=== PATIENT | female | born 1995 | race Caucasian/White ===

== ENCOUNTER 2016-07-19 15:45 | Emergency (ER) | payer BC ==
[2016-07-19 16:16] VITALS: BP 109/55
--- NOTE | 2016-07-19 16:28 | UC ---
Abdominal Pain Female HPI - HPI Summary HPI Summary: The patient comes in today for: 1. Abdominal pain: Onset: 4-5 days ago. Palliative/provocative: Heating pad makes it worse. Quality: Cramping. Region: Left side is worse, but she has it across the whole front, lower abdomen. Severity: Initially, the pain was 2/10, but now it is 6/10 Time: Constant. Associated symptoms: : A1 LMP: June 04. She is breast feeding. She took a home test (+) one week ago. Blood test was positive yesterday. Fevers: None. Vaginal discharge: Pinkish discharge. 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 Last Menstrual Period: 06/05/16 Allergies/Adverse Reactions: Allergies Allergy/AdvReac Type Severity Reaction Status Date / Time Lactose Intolerance (GI) AdvReac GI Upset Verified 07/19/16 16:16 Home Medications: Home Medications NK [No Home Medications Reported] 07/19/16 [History Confirmed 07/19/16] PMH/Surg Hx/FS Hx/Imm Hx Previously Healthy: Yes - No DM, thyroid, HTN, Asthma, GERD, Other History Of: Negative For: HIV, Hepatitis B, Hepatitis C, Anticoagulant Therapy - Surgical History Surgical History: Yes Surgery Procedure, Year, and Place: Appendectomy 2007, D & C - Family History Known Family History: Positive: Cardiac Disease Negative: Diabetes - Social History Occupation: Employed Full-time Alcohol Use: None Substance Use Type: None Substance Use Comment - Amount & Last Used: occasional use Smoking Status (MU): Current Some Day Smoker Type: Cigarettes Amount Used/How Often: 1/2 cig daily Length of Time of Smoking/Using Tobacco: 2 yrs Have You Smoked in the Last Year: Yes When Did the Patient Quit Smoking/Using Tobacco: a couple months ago Household Exposure Type: Cigarettes - Immunization History Most Recent Influenza Vaccination: FALL 2013 Vaccination Up to Date: Yes Review of Systems Constitutional: Negative Skin: Negative Eyes: Negative ENT: Negative Respiratory: Negative Cardiovascular: Negative Gastrointestinal: Abdominal Pain Genitourinary: Negative Motor: Negative Neurovascular: Negative All Other Systems Reviewed And Are Negative: Yes Physical Exam Triage Information Reviewed: Yes Appearance: Well-Appearing, No Pain Distress, Well-Nourished Vital Signs: Initial Vital Signs Temp 98.7 F 07/19/16 16:10 Pulse 89 07/19/16 16:10 Resp 17 07/19/16 16:10 BP 109/55 07/19/16 16:10 Pulse Ox 100 07/19/16 16:10 Eyes: Positive: Conjunctiva Clear. Negative: Discharge ENT: Positive: Hearing grossly normal. Negative: Pharyngeal erythema, Nasal congestion, Nasal drainage, TM bulging, TM dull, TM red, Tonsillar swelling, Tonsillar exudate Dental: Negative: Gross Decay/Caries @, Dental Fracture @ Neck: Positive: Supple, Nontender, No Lymphadenopathy. Negative: Nuchal Rigidity Respiratory: Positive: Chest non-tender, Lungs clear, No respiratory distress, No accessory muscle use. Negative: Crackles, Wheezing Cardiovascular: Positive: RRR, No Murmur Abdomen Description: Positive: No Organomegaly, Soft, Distended, Guarding. Negative: Nontender - She has tenderness that is worse in the LLQ. There is rebound and percussion tenderness. Bowel Sounds: Positive: Present Musculoskeletal: Positive: Strength Intact, ROM Intact, No Edema, Other: - Unable to feel fundus. Neurological: Positive: Alert, Muscle Tone Normal Psychological Exam: Normal Psychological: Positive: Normal Response To Family, Age Appropriate Behavior, Consolable Skin: Negative: rashes, breakdown Abd Pain Female Course/Dx - Course Course Of Treatment: Patient was told that I recommneded that she go to [facility] for further testing. - Differential Dx/Diagnosis Provider Diagnoses: abdominal pain. - Physician Notification/Consults Discussed Care of Patient With: Dr. Turner Time Discussed With Above Provider: 16:45 Discharge - Discharge Plan Condition: Stable Disposition: HOME Forms: *Work Release Referrals: Non Staff,Doctor [Medical Doctor] - Additional Instructions: Please go directly to the [facility] ER.
== END 2016-07-19 16:48 | disposition left against medical advice (07) ==
LOC: UCCORT 15:45
DX: O26.899 Other specified pregnancy related conditions, unspecified trimester (principal); R10.30 Lower abdominal pain, unspecified; Z3A.00 Weeks of gestation of pregnancy not specified; Z72.0 Tobacco use
CPT/HCPCS: 99212; G0463

== ENCOUNTER 2016-11-03 08:37 | Emergency (ER) | payer BC, MEDICAID ==
[2016-11-03 08:51] VITALS: BP 97/50
--- NOTE | 2016-11-03 09:00 | UC ---
Throat Pain/Nasal Neal HPI - HPI Summary HPI Summary: Pt c/o sore throat, cough and stuffy nose getting worse last 3 days. Pt states it started out as "tickle in my throat this past Sunday night", had fever tmax 101.5 on Sunday- no fever since. States she "threw up x7 times last night because of my cough". Took tylenol 650mg today 0230. Pt currently 20 weeks . [ End ] - History of Current Complaint Chief Complaint: UCGeneralIllness Stated Complaint: STUFFY/RUNNY NOSE COUGH HEADACHE Time Seen by Provider: 11/03/16 08:51 Hx Obtained From: Patient Hx Last Menstrual Period: 06/05/16 ?: Yes Onset/Duration: Gradual Onset - Allergies/Home Medications Allergies/Adverse Reactions: Allergies Allergy/AdvReac Type Severity Reaction Status Date / Time Lactose Intolerance (GI) AdvReac GI Upset Verified 11/03/16 08:43 Home Medications: Home Medications Vitamin [Calna] 1 tab DAILY 11/03/16 [History Confirmed 11/03/16] PMH/Surg Hx/FS Hx/Imm Hx Previously Healthy: Yes Other History Of: Negative For: HIV, Hepatitis B, Hepatitis C, Anticoagulant Therapy - Surgical History Surgical History: Yes Surgery Procedure, Year, and Place: Appendectomy 2007, D & C - Family History Known Family History: Positive: Cardiac Disease Negative: Diabetes - Social History Lives: With Family Alcohol Use: None Substance Use Type: None Substance Use Comment - Amount & Last Used: occasional use Smoking Status (MU): Former Smoker Type: Cigarettes Amount Used/How Often: 1/2 cig daily Length of Time of Smoking/Using Tobacco: 2 yrs Have You Smoked in the Last Year: Yes When Did the Patient Quit Smoking/Using Tobacco: a couple months ago Household Exposure Type: Cigarettes - Immunization History Most Recent Influenza Vaccination: NOT YET 2017 Vaccination Up to Date: Yes Review of Systems Constitutional: Fever, Chills, Fatigue ENT: Sore Throat Gastrointestinal: Vomiting, Nausea Neurological: Headache All Other Systems Reviewed And Are Negative: Yes Physical Exam Triage Information Reviewed: Yes Appearance: Well-Appearing, No Pain Distress, Well-Nourished Vital Signs: Initial Vital Signs Temp 98.6 F 11/03/16 08:44 Pulse 99 11/03/16 08:44 Resp 18 11/03/16 08:44 BP 97/50 11/03/16 08:44 Pulse Ox 100 11/03/16 08:44 Vital Signs Reviewed: Yes Eye Exam: Normal ENT Exam: Normal Dental Exam: Normal Neck exam: Normal Neck: Positive: 1 Respiratory Exam: Normal Cardiovascular Exam: Normal Musculoskeletal Exam: Normal Neurological Exam: Normal Psychological Exam: Normal Skin Exam: Normal Throat Pain/Nasal Course/Dx - Course Course Of Treatment: strep neg. nausea from the illness. push fluids , if Sx worsen then go to the ED -- she is aware if Sx persist she will need IV fluids. she is aware and agrees but not there at this time. rest up and OOW for 2 days . - Differential Dx/Diagnosis Differential Diagnosis/HQI/PQRI: Influenza, Peritonsillar Abscess, Pharyngitis, Sinusitis, Tonsillitis, URI Provider Diagnoses: VIral Syndrome during Discharge - Discharge Plan Condition: Good Disposition: HOME Patient Education Materials: Acute Nausea and Vomiting (ED), Viral Syndrome (ED ) Forms: *Work Release Referrals: Sandy Catalan MD [Primary Care Provider] - 3 Days Additional Instructions: If your symptoms worsen then go to the Emergency room for further evaluation . Please for the cough consider tea with honey, consider benadryl for the congestion for a day or two, continue with humidifier, start the netti pot, follow up with PCP for any concerns
== END 2016-11-03 09:39 | disposition home or self-care (01) ==
LOC: UCCORT 08:37
DX: O98.512 Other viral diseases complicating pregnancy, second trimester (principal); Z3A.20 20 weeks gestation of pregnancy
CPT/HCPCS: 87502; 87651; 99211; G0463

== ENCOUNTER 2017-12-04 11:22 | Emergency (ER) | payer BC, MEDICAID ==
[2017-12-04 11:55] VITALS: BP 111/63
--- NOTE | 2017-12-04 12:19 | UC ---
Throat Pain/Nasal Neal HPI - HPI Summary HPI Summary: sore throat x 2 days + fatigue, very bad headaches, cough, congestion pressure in her face and behind her eyes, seeing dark spots, no dizziness but feels very tired and cannot focus no fever, + chills - History of Current Complaint Chief Complaint: UCGeneralIllness Stated Complaint: HEADACHE,SORE THROAT,BODY ACHES Time Seen by Provider: 12/04/17 11:52 Hx Obtained From: Patient Hx Last Menstrual Period: IUD ?: No Onset/Duration: Gradual Onset, Lasting Days - 2, Still Present Severity: Moderate Pain Intensity: 4 Cough: Nonproductive Associated Signs & Symptoms: Positive: Sinus Discomfort. Negative: Hoarseness, Nasal Discharge, Fever, Vomiting, Rash - Allergies/Home Medications Allergies/Adverse Reactions: Allergies Allergy/AdvReac Type Severity Reaction Status Date / Time lactose AdvReac Intermediate GI Upset Verified 12/04/17 11:56 Home Medications: Home Medications NK [No Home Medications Reported] 12/04/17 [History Confirmed 12/04/17] PMH/Surg Hx/FS Hx/Imm Hx Previously Healthy: Yes Other History Of: Negative For: HIV, Hepatitis B, Hepatitis C, Anticoagulant Therapy - Surgical History Surgical History: Yes Surgery Procedure, Year, and Place: Appendectomy 2007, D & C - Family History Known Family History: Positive: Cardiac Disease Negative: Diabetes - Social History Alcohol Use: None Substance Use Type: None Substance Use Comment - Amount & Last Used: occasional use Smoking Status (MU): Former Smoker Type: Cigarettes Amount Used/How Often: 1/2 cig daily Length of Time of Smoking/Using Tobacco: 2 yrs Have You Smoked in the Last Year: Yes When Did the Patient Quit Smoking/Using Tobacco: a couple months ago Household Exposure Type: Cigarettes - Immunization History Most Recent Influenza Vaccination: NOT YET 2017 Vaccination Up to Date: Yes Review of Systems Constitutional: Fever, Chills, Fatigue Skin: Negative Eyes: Photophobia ENT: Sore Throat Respiratory: Cough Cardiovascular: Negative Is Patient Immunocompromised?: No All Other Systems Reviewed And Are Negative: Yes Physical Exam Triage Information Reviewed: Yes Appearance: Well-Nourished, Pain Distress Vital Signs: Initial Vital Signs Temp 97.9 F 12/04/17 11:44 Pulse 87 12/04/17 11:44 Resp 18 10/16/18 11:44 BP 111/63 12/04/17 11:44 Pulse Ox 99 12/04/17 11:44 Vital Signs Reviewed: Yes Eyes: Positive: Conjunctiva Clear ENT: Positive: Normal ENT inspection, Hearing grossly normal, Pharyngeal erythema, Tonsillar swelling, Tonsillar exudate. Negative: Nasal congestion, Nasal drainage Neck exam: Normal Neck: Positive: Supple, Nontender, No Lymphadenopathy Respiratory Exam: Normal Respiratory: Positive: Chest non-tender, Lungs clear, Normal breath sounds Cardiovascular: Positive: RRR, No Murmur, Pulses Normal Abdomen Description: Positive: Nontender, Soft. Negative: CVA Tenderness (R), CVA Tenderness (L), Distended, Guarding Bowel Sounds: Positive: Present Musculoskeletal Exam: Normal Neurological Exam: Normal Skin Exam: Normal Throat Pain/Nasal Course/Dx - Differential Dx/Diagnosis Provider Diagnoses: viral illness Discharge - Sign-Out/Discharge Documenting (check all that apply): Patient Departure All imaging exams completed and their final reports reviewed: No Studies - Discharge Plan Condition: Stable Disposition: HOME Patient Education Materials: Viral Syndrome (ED) Referrals: No Primary Care Phys,NOPCP [Primary Care Provider] - 5 Days - Billing Disposition and Condition Condition: STABLE Disposition: Home
== END 2017-12-04 12:28 | disposition home or self-care (01) ==
LOC: UCCORT 11:22
DX: B34.9 Viral infection, unspecified (principal); E73.9 Lactose intolerance, unspecified; Z87.891 Personal history of nicotine dependence
CPT/HCPCS: 87651; 99212; G0463

== ENCOUNTER 2018-07-10 10:53 | Emergency (ER) | payer BC, MEDICAID ==
[2018-07-10 11:33] VITALS: BP 122/75
--- NOTE | 2018-07-10 12:09 | UC ---
General HPI - HPI Summary HPI Summary: PT HAS HAD A BUMP ON HER SCALP FOR ABOUT 2 YEARS. RECENTLY, THE AREA HAS BECOME SENSITIVE. IT HAS A LEDGE ON IT. - History of Current Complaint Chief Complaint: HAVENkin Stated Complaint: SKIN CONCERN Time Seen by Provider: 07/10/18 12:02 Hx Obtained From: Patient Hx Last Menstrual Period: 07/10/18 Pain Intensity: 0 Associated Signs & Symptoms: Negative: Fever - Allergy/Home Medications Allergies/Adverse Reactions: Allergies Allergy/AdvReac Type Severity Reaction Status Date / Time lactose AdvReac Intermediate GI Upset Verified 07/10/18 11:34 PMH/Surg Hx/FS Hx/Imm Hx Previously Healthy: Yes Other History Of: Negative For: HIV, Hepatitis B, Hepatitis C, Anticoagulant Therapy - Surgical History Surgical History: Yes Surgery Procedure, Year, and Place: Appendectomy 2007, D & C - Family History Known Family History: Positive: Cardiac Disease Negative: Diabetes - Social History Lives: With Family Alcohol Use: None Substance Use Type: None Substance Use Comment - Amount & Last Used: occasional use Smoking Status (MU): Former Smoker Type: Cigarettes Amount Used/How Often: 1/2 cig daily Length of Time of Smoking/Using Tobacco: 2 yrs Have You Smoked in the Last Year: Yes When Did the Patient Quit Smoking/Using Tobacco: a couple months ago Household Exposure Type: Cigarettes - Immunization History Most Recent Influenza Vaccination: NOT YET 2017 Vaccination Up to Date: Yes Review of Systems All Other Systems Reviewed And Are Negative: No Constitutional: Negative: Fever Skin: Positive: Rash - SPOT ON SCALP Neurological: Negative: Headache Physical Exam Triage Information Reviewed: Yes Appearance: Well-Appearing Vital Signs: Initial Vital Signs Temp 98.7 F 07/10/18 11:27 Pulse 79 07/10/18 11:27 Resp 16 07/10/18 11:27 BP 122/75 07/10/18 11:27 Pulse Ox 99 07/10/18 11:27 Vital Signs Reviewed: Yes Eyes: Positive: Conjunctiva Clear Neck: Positive: Supple Respiratory: Positive: No respiratory distress Musculoskeletal: Positive: ROM Intact Skin Exam: Normal, Other - Back of scalp on R has a 7mm raised white lesion. No erythema, warmth or tenderness. Course/Dx - Differential Dx - Multi-Symptom Differential Diagnoses: Other - Nno concern for infection or abscess. will refer to dermatology - Diagnoses Provider Diagnosis: Skin lesion of scalp Discharge - Sign-Out/Discharge Documenting (check all that apply): Patient Departure All imaging exams completed and their final reports reviewed: No Studies - Discharge Plan Condition: Stable Disposition: HOME Patient Education Materials: Soft Tissue Mass (ED) Referrals: Alexandria Rivas [Medical Doctor] - As Soon As Possible Additional Instructions: YOU CAN REQUEST THE [facility] OFFICE - Billing Disposition and Condition Condition: STABLE Disposition: Home
== END 2018-07-10 12:15 | disposition home or self-care (01) ==
LOC: UCCORT 10:53
DX: L98.8 Other specified disorders of the skin and subcutaneous tissue (principal); Z87.891 Personal history of nicotine dependence; Z91.011 Allergy to milk products
CPT/HCPCS: 99211; G0463

== ENCOUNTER 2019-04-01 10:27 | Emergency (ER) | payer BC, MEDICAID ==
[2019-04-01 10:46] VITALS: BP 112/65
--- NOTE | 2019-04-01 10:59 | UC ---
Complaint Female HPI - HPI Summary HPI Summary: concern about has done few home test at home , had few negative and few positives c/o breast fullness, pt has an IUD and does not have regular menstrual periods no abdominal pain, no vaginal discharge or bleeding - History Of Current Complaint Chief Complaint: UCGU Stated Complaint: PERSONAL Time Seen by Provider: 04/01/19 10:45 Hx Obtained From: Patient Hx Last Menstrual Period: IUD placed May 2017 Onset/Duration: Gradual Onset, Lasting Days - 4, Still Present Timing: Constant Severity Initially: Mild Severity Currently: Mild Pain Intensity: 0 Character: Not Applicable Aggravating Factor(s): Nothing Alleviating Factor(s): Nothing Associated Signs And Symptoms: Negative: Fever, Back Pain, Vaginal Bleeding/ Discharge, Vaginal Discharge, Nausea, Vomiting(# Of Episodes =), Genital Swelling, Genital Blisters, Retained Foregin Body (Specify) - Allergies/Home Medications Allergies/Adverse Reactions: Allergies Allergy/AdvReac Type Severity Reaction Status Date / Time lactose AdvReac Intermediate GI Upset Verified 04/01/19 10:37 Home Medications: Home Medications Levonorgestrel (Iud) [Mirena IUD] 1 implant ONCE 04/01/19 [History Confirmed 01/08] PMH/Surg Hx/FS Hx/Imm Hx Cardiovascular History: Cardiac Disease - SVT Other History Of: Negative For: HIV, Hepatitis B, Hepatitis C, Anticoagulant Therapy - Surgical History Surgical History: Yes Surgery Procedure, Year, and Place: Appendectomy 2007, D & C - Family History Known Family History: Positive: Cardiac Disease Negative: Diabetes - Social History Alcohol Use: None Substance Use Type: None Substance Use Comment - Amount & Last Used: occasional use Smoking Status (MU): Light Every Day Tobacco Smoker Type: Cigarettes Amount Used/How Often: 2 cigs/day Length of Time of Smoking/Using Tobacco: 2 yrs Have You Smoked in the Last Year: Yes When Did the Patient Quit Smoking/Using Tobacco: a couple months ago Household Exposure Type: Cigarettes - Immunization History Most Recent Influenza Vaccination: NOT YET 2017 Vaccination Up to Date: Yes Review of Systems All Other Systems Reviewed And Are Negative: Yes Is Patient Immunocompromised?: No Physical Exam Triage Information Reviewed: Yes Appearance: Well-Appearing, No Pain Distress, Well-Nourished Vital Signs: Initial Vital Signs Temp 97.8 F 04/01/19 10:37 Pulse 72 04/01/19 10:37 Resp 16 04/01/19 10:37 BP 112/65 04/01/19 10:37 Pulse Ox 100 04/01/19 10:37 Vital Signs Reviewed: Yes Eye Exam: Normal Eyes: Positive: Conjunctiva Clear ENT: Positive: Normal ENT inspection, Hearing grossly normal, Pharynx normal Neck exam: Normal Neck: Positive: Supple, Nontender, No Lymphadenopathy Respiratory: Positive: Chest non-tender, Lungs clear, Normal breath sounds Cardiovascular: Positive: RRR, No Murmur, Pulses Normal Abdomen Description: Positive: Nontender, No Organomegaly, Soft Bowel Sounds: Positive: Present Skin Exam: Normal Complaint Female Dx - Differential Dx/Diagnosis Provider Diagnosis: Amenorrhea Discharge ED - Sign-Out/Discharge Documenting (check all that apply): Patient Departure All imaging exams completed and their final reports reviewed: No Studies - Discharge Plan Condition: Stable Disposition: HOME Patient Education Materials: (ED) Referrals: Daryn Parisi PA [Primary Care Provider] - If Needed Additional Instructions: will check serum HCG please call the office tomorrow for the lab results - Billing Disposition and Condition Condition: STABLE Disposition: Home
== END 2019-04-01 11:02 | disposition home or self-care (01) ==
LOC: UCCORT 10:27
DX: N91.2 Amenorrhea, unspecified (principal); Z91.011 Allergy to milk products; F17.210 Nicotine dependence, cigarettes, uncomplicated
CPT/HCPCS: 36415; 84702; 99211; G0463